=== PATIENT | female | born 1985 | race African-American/Black ===

== ENCOUNTER 2017-01-22 18:46 | Emergency (ER) | payer SELFPAY ==
[~2017-01-22] VITALS: Ht 160 cm; Wt 111.0 kg
[~2017-01-22 18:46] MED LIST: AMOX875T20 OR; DOXY100T PO; FLUC10S PO; LORC10TA PO; Z.0.NO CURRENT MEDS
[2017-01-22 18:47] VITALS: BP 136/76; PULSE 81; RESP 16; TEMP 97.7; O2SAT 100
--- NOTE | 2017-01-22 20:02 | PD ---
HPI Chief Complaint: Skin Problem Time Seen by Provider: 19:56 Travel History International Travel<30 days: No Contact w/Intl Traveler<30days: No Traveled to known affect area: No History of Present Illness HPI Patient comes in complaining of a left facial cheek lesion that began 2 days ago. Patient reports started off as a small pimple however she scratched it drained clear fluid then became crusted over and got worse. Patient describes pain is feeling as though she was hit hit her in her face and radiates to her left ear. Patient denies anything making this better or worse. Denies any fevers, weight loss, nausea, vomiting, , headaches, or being around anyone else with similar. PFSH Past Medical History Medical History: Denies Significant Hx Blood Disorders: No Cancer: No Cardiovascular Problems: No Diminished Hearing: No Endocrine: No Genitourinary: No Immune Disorder: No Musculoskeletal: No Neurologic: No Psychiatric: No Reproductive: No Respiratory: No ?: Not LMP: 01/21/17 : 0 Social History Alcohol Use: No Tobacco Use: No Substance Use: No Allergies-Medications (Allergen,Severity, Reaction): Coded Allergies: No Known Allergies (Verified Adverse Reaction, Unknown, 01/22/17) Reported Meds & Prescriptions Reported Meds & Active Scripts Active Bactroban Topical (Mupirocin) 22 Gm Cream 1 Applic TOPICAL BID Bactrim DS (Sulfamethoxazole-Trimethoprim) 800-160 Mg Tab 1 Tab PO BID Review of Systems Except as stated in HPI: all other systems reviewed are Neg Physical Exam Narrative GENERAL: Well-developed, overly nourished, in no acute distress, and non-ill appearing. SKIN: Focused skin assessment warm and dry. Crush over lesion noted on left facial cheek is mildly tender to palpation. There is no induration or fluctuation. There is no crepitus. Suspicious for early cellulitis versus impetigo. HEAD: Atraumatic. Normocephalic. EYES: Pupils equal and round. EOMI. No scleral icterus. No injection or drainage. ENT: No nasal bleeding or discharge. Mucous membranes pink and moist. NECK: Trachea midline. No cervical lymphadenopathy. Supple. No nuclear rigidity. RESPIRATORY: No accessory muscle use. No respiratory distress. MUSCULOSKELETAL: No obvious deformities. No clubbing. No cyanosis. No edema. Full range of motion. NEUROLOGICAL: Awake and alert. No obvious cranial nerve deficits. Motor grossly within normal limits. Normal speech. PSYCHIATRIC: Appropriate mood and affect; insight and judgment normal. Data Data Last Documented VS Vital Signs Date Time Temp Pulse Resp B/P (MAP) Pulse Ox O2 Delivery O2 Flow Rate FiO2 01/22/17 20:07 01/22/17 18:47 97.7 81 16 100 Room Air Orders Orders Ed Discharge Order (01/22/17 20:03) MDM Medical Decision Making Medical Screen Exam Complete: Yes Emergency Medical Condition: Yes Differential Diagnosis Abscess, cellulitis, impetigo, folliculitis, gangrene, other Narrative Course Patient in no obvious distress upon re-evaluation. Patient was asked if they wanted to speak to my attending, which the patient did not wish to do at this time. Any questions/concerns in reference to patient diagnosis/condition discussed and clarified prior to patient's discharge. Reinforced sheer importance of close follow up with patient's primary physician or primary care clinic. Instructed patient to return to ED immediately, if symptoms return/ worsen. Patient showed understanding of above instructions. Further instructions and recommendations were detailed in discharge paperwork. Patient ambulated without difficulty out of ED at discharge. Diagnosis Primary Impression: Cellulitis of left external cheek Referrals: [facility] Patient Instructions: Cellulitis (ED), General Instructions Additional Instructions: Follow-up with your primary care physician or return here in 2 days for recheck. Take all medication as prescribed. Return to the emergency department if symptoms get worse. Med/Other Pt SpecificInfo: Prescription(s) given Scripts Mupirocin Topical (Bactroban Topical) 22 Gm Cream 1 APPLIC TOPICAL BID for Mgmt Bacterial Infection, #1 TUBE 0 Refills Prov: Marek Iqbal MD 01/22/17 Sulfamethoxazole-Trimethoprim (Bactrim DS) 800-160 Mg Tab 1 TAB PO BID for Infection, #20 TAB 0 Refills Prov: Marek Iqbal MD 01/22/17 Disposition: 01 DISCHARGE HOME Condition: Stable Mohit Alejandro Jan 22, 2017 20:02
[2017-01-22] MEDS ORDERED: BACT800T5 PO (20:03)
[2017-01-22] MEDS ORDERED: MUPI2%T TOPICAL (20:03)
== END 2017-01-22 20:20 | disposition home or self-care (01) ==
LOC: NEPK 18:46
DX: L03.211 Cellulitis of face (principal)
CPT/HCPCS: 99284